=== PATIENT | female | born 1975 | race Caucasian/White ===

== ENCOUNTER 2019-04-17 15:48 | Emergency (ER) | payer BC, SELFPAY ==
[2019-04-17 17:29] VITALS: BP 182/125; PULSE 108; RESP 18; TEMP 36.7; O2SAT 99; BMI 47.2
[2019-04-17 18:41] LABS: Basophils # 0.1 10^3/uL (0.0-0.1); Basophils % 0.5 %; Eosinophils % 0.1 %; Hematocrit 40.7 % (37.0-47.0); Hemoglobin 12.9 g/dL (11.5-15.3); Lymphocytes # 1.6 10^3/uL (0.8-4.8); Lymphocytes % 9.9 %; Mean Corpuscular HGB Conc 31.7 g/dL (30.0-36.0); Mean Corpuscular Hemoglobin 26.5 pg (28.0-34.0); Mean Corpuscular Volume 83.7 fL (81-99); Mean Platelet Volume 9.8 fL (7.4-10.4); Monocytes # 1.1 10^3/uL (0.2-0.9); Monocytes % 6.8 %; Neutrophils # 13.3 10^3/uL (1.8-7.7); Nucleated Red Blood Cells % 0 %; Platelet Count 285 10^3/cmm (130-400); Red Blood Count 4.86 10^6/uL (4.1-5.3); Red Cell Distribution Width 13.1 % (12.1-15.1); White Blood Count 16.2 10^3/uL (4.0-10.0)
[2019-04-17 18:48] LABS: Alanine Aminotransferase 19 U/L (0-33); Albumin Level 4.1 g/dL (3.5-5.2); Alkaline Phosphatase 84 IU/L (35-105); Anion Gap 15.8 (5-19); Aspartate Amino Transferase 13 U/L (0-32); Blood Urea Nitrogen 11 mg/dL (6-20); Calcium 9.5 mg/Dl (8.6-10.0); Carbon Dioxide 24 mmol/L (22-29); Chloride 103 mmol/L (98-107); Globulin 3.1 g/dL (1.3-4.6); Glomerular Filtration Rate 108.1 mL/min (90-130); Glucose 169 mg/dL (74-109); Lipase 24 U/L (13-60); Potassium 3.8 mmol/L (3.5-5.1); Sodium 139 mmol/L (136-145); Total Bilirubin 0.2 mg/dL (0.15-1.2); Total Protein 7.2 g/dL (6.6-8.7)
--- NOTE | 2019-04-17 20:15 | W.ED.GENADLT ---
HPI - General Adult General: Chief complaint: Abdominal Pain Stated complaint: lower abd pain Time Seen by Provider: 04/17/19 18:31 History of Present Illness: HPI narrative: low back and abdomoinal pain left started today and seen Dr. Aponte he ordered CT, awaiting insurance, pt on menses, blood in urine Onset (ago): day(s) (1) Location: back and abdomen Radiation: back and abdomen Severity: moderate Severity scale (1-10): 7 Quality: aching and constant Relieving factors: medication Associated symptoms: Reports nausea; Deny chest pain, dyspnea, headache(s), rash or vomiting Review of Systems Const: Denies: fever, chills or body aches Eyes: Denies: change in vision or blurry vision ENMT: Denies: throat pain or nasal congestion Card: Denies: chest pain or shortness of breath on exertion Resp: Denies: shortness of breath, productive cough or non-productive cough GI: Reports: abdominal pain, nausea and other (low back pain left side); Denies: vomiting or change in bowel habits Musc: Denies: extremity pain Skin/Breast: Denies: rash Neuro: Denies: headache Psych: Denies: anxiety or depression Juan/Lymph: Denies: easy bruising PFSH ED PFSH: Statuses (acute, chronic, etc) shown below reflect problem list status as previously entered and may not be historically accurate Social History Smoking and tobacco status: never smoked Female Reproductive History: Date of last menstrual period: 04/16/19 Physical Exam Const: COMMON NORMALS: no apparent distress, average body habitus and oriented x3 HENMT: COMMON NORMALS: normocephalic HEAD & SCALP: normal to inspection and normocephalic FACE & SINUS: normal facial exam Eye: COMMON NORMALS: conjunctivae normal GENERAL EYE: normal appearance of both eyes CONJUNCTIVA: Yes conjunctivae normal Neck/C-Spine: COMMON NORMALS: no JVD Chest: COMMONS NORMALS: inspection of chest normal Resp: COMMON NORMALS: normal respiratory effort and clear to auscultation bilaterally AUSCULTATION: clear to auscultation bilaterally Cardio: COMMON NORMALS: no JVD, regular rate and regular rhythm RATE: regular rate RHYTHM: regular rhythm GI: COMMON NORMALS: negative for non-tender INSPECTION: No abdominal distension AUSCULTATION: Yes normoactive bowel sounds PALPATION: Yes tender Details: LLQ and No rebound tenderness present Extremity: COMMON NORMALS: normal to inspection and full ROM Neuro: COMMON NORMALS: oriented x3 Course Vital Signs: Vital signs: Vital Signs Temperature 98.1 F 04/17/19 17:29 Pulse Rate 108 H 04/17/19 17:29 Respiratory Rate 18 04/17/19 17:29 Blood Pressure 182/125 04/17/19 17:29 Pulse Oximetry 99 04/17/19 17:29 [facility] - General Adult Lab Data: Labs: Lab Results 04/17/19 04/17/19 Range/Units 18:13 18:13 WBC 16.2 H (4.0-10.0) 10^3/ uL RBC 4.86 (4.1-5.3) 10^6/u L Hgb 12.9 (11.5-15.3) g/dL Hct 40.7 (37.0-47.0) % MCV 83.7 (81-99) fL MCH 26.5 L (28.0-34.0) pg MCHC 31.7 (30.0-36.0) g/dL RDW 13.1 (12.1-15.1) % Plt Count 285 (130-400) 10^3/c mm MPV 9.8 (7.4-10.4) fL Neut % (Auto) 82.0 % Lymph % (Auto) 9.9 % Graham % (Auto) 6.8 % Eos % (Auto) 0.1 % Baso % (Auto) 0.5 % Neut # (Auto) 13.3 H (1.8-7.7) 10^3/u L Lymph # (Auto) 1.6 (0.8-4.8) 10^3/u L Graham # (Auto) 1.1 H (0.2-0.9) 10^3/u L Eos # (Auto) 0.0 (0.0-0.8) 10^3/u L Baso # (Auto) 0.1 (0.0-0.1) 10^3/u L Nucleated RBC % (a uto) 0 % Nucleated RBCs # 0.0 /100WBC Sodium 139 (136-145) mmol/L Potassium 3.8 (3.5-5.1) mmol/L Chloride 103 (98-107) mmol/L Carbon Dioxide 24 (22-29) mmol/L Anion Gap 15.8 (5-19) BUN 11 (6-20) mg/dL Creatinine 0.6 (0.5-0.9) mg/dL GFR Calculation 108.1 (90-130) mL/min Glucose 169 H (74-109) mg/dL Calcium 9.5 (8.6-10.0) mg/Dl Total Bilirubin 0.2 (0.15-1.2) mg/dL AST 13 (0-32) U/L ALT 19 (0-33) U/L Alkaline Phosphata se 84 (35-105) IU/L Total Protein 7.2 (6.6-8.7) g/dL Albumin 4.1 (3.5-5.2) g/dL Globulin 3.1 (1.3-4.6) g/dL Lipase 24 (13-60) U/L Discharge Plan Discharge Patient Disposition: Home, Self-Care Clinical Impression: Abdominal pain of unknown cause Condition: Stable Prescriptions: No Action No Known Home Medications RF: 0 Referrals: Genaro Aponte DO [Primary Care Provider] - Patient Instructions: Cholecystitis (ED), Abdominal Pain (ED) Activity Restrictions/Additional Instructions: pt chooses to leave ama, signed formed, pt made aware of risks of leaving before testing completed, pt says she will f/u with Dr. Aponte Coding Level of Care Code ED [employer] for Daphne Jennifer
[2019-04-17 20:23] VITALS: BP 176/138; PULSE 96; RESP 20; O2SAT 96
== END 2019-04-17 20:21 | disposition home or self-care (01) ==
PROVIDERS: Nurse Practitioner Family; Emergency Provider Family Medicine; PCP Family Medicine
DX: R10.9 Unspecified abdominal pain (principal)
CPT/HCPCS: 36415; 80053; 83690; 84702; 85025; 99281

== ENCOUNTER 2020-07-02 07:54 | Outpatient (CLI) | payer OTHER, SELFPAY ==
--- NOTE | 2020-07-02 08:05 | XR_ITS ---
WS: [id number] XR knee LT 3V* [id number] REASON FOR EXAM: KNEE PAIN, LEFT FINDINGS: The medial, lateral, and patellofemoral joint spaces are intact. No focal bony abnormality. No soft tissue abnormality. XR/XR knee LT 3V* [id number] IMPRESSION: No significant abnormality of the left knee.
== END 2020-07-02 07:55 | disposition home or self-care (01) ==
LOC: RAD 08:00
PROVIDERS: PCP Family Medicine; Visit Provider Family Medicine
DX: M25.562 Pain in left knee (principal); I10 Essential (primary) hypertension
CPT/HCPCS: 73562

== ENCOUNTER 2020-07-28 06:57 | Outpatient (CLI) | payer OTHER, SELFPAY ==
--- NOTE | 2020-07-28 07:04 | MR_ITS ---
WS: [id number] MRI LEFT KNEE HISTORY: LEFT KNEE PAIN COMPARISON: 07/02/2020 radiographs. Anterior cruciate ligament: Increased T2 signal throughout a large portion of the ACL, greatest dista lly. There is at least a partial tear. Majority of the fibers course normally through the joint space . Posterior cruciate ligament: Intact. Medial collateral ligament: Intact. Posterior lateral corner structures: Intact. Medial menisci: Radial tear involving the body. Otherwise menisci are negative. Lateral meniscus: Intact. Normal signal, size and shape. Extensor mechanism: Distal quadriceps tendon and patellar tendons are intact. Fluid and soft tissue: Very small joint effusion. Small amount of edema anterior to the patella and p atellar tendon. No Frye's cyst. Osseous and articular structures: Patellofemoral compartment: Normal. Medial compartment: Mild narrowing of the medial compartment. Moderate thinning and fissuring of the cartilage. Lateral compartment: Mild joint space narrowing with minimal thinning of the cartilage. No fractures or marrow edema. MR/MR knee LT wo con* [id number] IMPRESSION: 1. Radial tear mid body medial meniscus. 2. Suspect partial tear in the ACL. 3. Mild medial and lateral compartment narrowing with mild chondromalacia.
== END 2020-07-28 06:58 | disposition home or self-care (01) ==
LOC: RADSHAW 07:00
PROVIDERS: PCP Family Medicine; Visit Provider Family Medicine
DX: S83.242A Other tear of medial meniscus, current injury, left knee, initial encounter (principal); M25.562 Pain in left knee; X58.XXXA Exposure to other specified factors, initial encounter
CPT/HCPCS: 73721

== ENCOUNTER → 2020-08-27 13:34 | Outpatient (BNVA) | payer OTHER, SELFPAY | PROVIDERS: PCP Family Medicine; Visit Provider Orthopaedic Surgery | DX: Z01.812 Encounter for preprocedural laboratory examination (principal); Z20.822 Contact with and (suspected) exposure to COVID-19 | CPT/HCPCS: 87635 ==

== ENCOUNTER 2020-09-02 05:58 | Day surgery (SDC) | payer OTHER, SELFPAY ==
[2020-09-01 14:23] VITALS: BMI 50.1
[2020-09-02] VITALS (9 sets, daily range): BP systolic 124–171; BP diastolic 82–110; PULSE 75–89; RESP 10–18; TEMP 36.1–36.6; O2SAT 93–96
[2020-09-02] MEDS: sodium chloride 0.9% 1,000 ML 30 ML IV (06:21)
--- NOTE | 2020-09-02 06:44 | W.PM.OPSUD ---
Surgery/Procedure H&P Update DATE OF PROCEDURE: September 02, 2020 DATE H&P PERFORMED: 08/10/20 PREOP DIAGNOSIS: Knee medial meniscal tear, left knee PLANNED PROCEDURE: Operation Date: 09/02/20 07:00 Proposed Procedures p Knee Arthroscopy w/ partial medial meniscectomy 94530 S83.242A(Left) - Cassius Vazquez MD
--- NOTE | 2020-09-02 06:51 | ANES.PREANE2 ---
Pre-Anesthetic Assessment Pre-Anesthetic Assessment: Height/Weight: Height 1.55 m Weight 120.202 kg Temp Pulse Resp BP Pulse Ox 98 F 89 18 171/107 96 09/02/20 06:20 09/02/20 06:20 09/02/20 06:20 09/02/20 06:20 09/02/20 06:20 Preop Diagnosis: Knee medial meniscal tear, left knee Proposed Procedure: Operation Date: 09/02/20 07:00 Proposed Procedures p Knee Arthroscopy w/ partial medial meniscectomy 54006 S83.242A(Left) - Cassius Vazquez MD Was Beta Shauna taken within 24 hours: Yes Was Clonidine taken within 24 hours: N/A Last intake: Intake Last Liquid Date 09/01/20 Last Liquid Time 19:00 Last Solid Date 09/01/20 Last Solid Time 19:00 Social: Social History: No alcohol and No tobacco Exam: Pre-Anes Outpt Exam: alert, oriented x 3, clear to auscultation bilaterally and regular rate & rhythm Airway: Submandibular: WNL Cervical ROM: WNL MP: 2 Dentition: Full CV/HEM: CV/HEM: HTN Metabolic: Metabolic: Morbid obesity Neuropsych: Neuropsych: Anxiety Anesthetic Plan: ASA status: 3 Anesthesia: General Risk of > 500 ml blood loss (7ml/kg in children): No Meds/Allergies Current Medications: Current Medications Generic Name Dose Route Start Last Admin Trade Name Freq PRN Reason Stop Dose Admin Sodium Chloride 1,000 mls @ 30 ml s/hr 09/02/20 06:15 09/02/20 06:21 Sodium Chloride 0.9% IV 09/03/20 06:14 30 mls/hr .Q24H MARIA DEL CARMEN Administration PFSH Anesthesia PFSH: Social History Smoking and tobacco status: never smoked Female Reproductive History: Date of last menstrual period: 04/16/19 Data Anesthesia Cardiac Studies: No Data to Display
[2020-09-02] MEDS: morphine 4 mg/mL SDV 1 mL 8 MG (07:36)
--- NOTE | 2020-09-02 08:22 | P.OP_ITS ---
Operative Report Date of procedure: September 02, 2020 Pre-op Diagnosis: Knee medial meniscal tear, left knee Post-op diagnosis: same Post-op Findings: Same Procedure Done: Partial left medial Pathology: none sent Surgeon: Cassius Vazquez Anesthesia: General Estimated blood loss (mL): 5 Complications: None Findings: The patient had a complex flap tear of the posterior middle third of the medial meniscus involving approximately the central 50% Condition: stable Disposition: PACU Procedure: The patient was taken to the operating room and given a general anesthesia. She was given 2 g of Ancef. She is prepped and draped in the supine position with a tourniquet on the left thigh. The tourniquet was never i nflated. The knee was infiltrated with 30 cc of 0.5% Marcaine with epi and 4 mg of morphine. A timeout was performed. The knee was initially entered through the standard inferior medial and inferolateral portal. The diagnostic portion of the arthroscopy was performed and the tearing of the medial meniscus identified. Initially using an incisor shaver the anterior and posterior flaps were debrided back to a stable rim. This involved removal approximately 50% of the posterior medial meniscus. The [employer] probe was then used to debride the remaining rim back to stable margins. The knee was irrigated with saline. Portals were closed with 3-0 Prolene. Sterile dressings were applied. The patient was extubated and taken to recovery room in stable condition.
--- NOTE | 2020-09-02 08:39 | ANE.PACU2 ---
Inpatient post-anesthesia follow up: Airway intact: Yes Vital signs: Temperature 97.0 F Pulse Rate 77 Respiratory Rate 16 Blood Pressure 136/82 Pulse Oximetry 95 Oxygen Delivery Me thod Room Air Oxygen Flow Rate Fraction of Inspir ed Oxygen Hydration adequate: Yes Nausea and vomiting: No Pain level: 2 Mental status: Baseline
[2020-09-02] MEDS: HYDROcodone-acetaminophen 5-325 mg Tablet 1 TAB PO (08:47)
--- NOTE | 2020-09-02 12:28 | ANE.PACU2 ---
Inpatient post-anesthesia follow up: Airway intact: Yes Vital signs: Temperature 97.0 F Pulse Rate 75 Respiratory Rate 18 Blood Pressure 171/101 Pulse Oximetry 96 Oxygen Delivery Me thod Room Air Oxygen Flow Rate Fraction of Inspir ed Oxygen Hydration adequate: Yes Nausea and vomiting: No Pain level: 3 Mental status: Baseline
== END 2020-09-02 09:35 | disposition home or self-care (01) ==
PROVIDERS: PCP Family Medicine; Visit Provider Orthopaedic Surgery
PROC: (CPT 29870; principal; 2020-09-02 07:00)
DX: S83.242A Other tear of medial meniscus, current injury, left knee, initial encounter (principal); X50.1XXA Overexertion from prolonged static or awkward postures, initial encounter; I10 Essential (primary) hypertension; E66.01 Morbid (severe) obesity due to excess calories; Z68.43 Body mass index [BMI] 50.0-59.9, adult; F41.9 Anxiety disorder, unspecified
CPT/HCPCS: 27332; 96365; J0690; J1100; J1170; J1200; J1885; J2270; J2370; J2405; J2704; J3010; J3490; J7030

== ENCOUNTER 2024-08-07 15:47 | Outpatient (CLI) | payer OTHER, SELFPAY ==
--- NOTE | 2024-08-07 16:04 | MM_ITS ---
WS: [id number] BILATERAL 3D TOMOSYNTHESIS DIGITAL SCREENING MAMMOGRAPHY WITH CAD CLINICAL INFORMATION: SCREEN HISTORY: Screening mammogram. No current complaints. COMPARISON: 2022 TECHNIQUE: Bilateral CC and MLO views. FINDINGS: Scattered fibroglandular densities bilaterally. No suspicious focal mass, asymmetry, calcifications, or architectural distortion. No evidence of malignancy. Incidental punctate calcifications. MM/MM [facility] tomosynthesis [id number] IMPRESSION: DENSITY: There are scattered areas of fibroglandular density. BI-RADS: 2 - Benign. FOLLOW UP: 1 Year Follow-up Recommend return to annual screening mammography.
== END 2024-08-07 15:48 | disposition home or self-care (01) ==
PROVIDERS: PCP Family Medicine; Visit Provider Family Medicine
DX: Z12.31 Encounter for screening mammogram for malignant neoplasm of breast (principal); R92.323 Mammographic fibroglandular density, bilateral breasts; R92.1 Mammographic calcification found on diagnostic imaging of breast
CPT/HCPCS: 77063; 77067